=== PATIENT | male | born 1960 | race Caucasian/White ===

== ENCOUNTER 2019-05-26 15:12 | Outpatient (CLI) | payer OTHER, SELFPAY ==
[2019-05-26 15:26] LABS: Basophils Absolute Auto 0.05 K/mm3 (0.00-0.10); Basophils Percent Auto 0.9 % (0.0-1.0); Eosinophils Absolute Auto 0.09 K/mm3 (0.02-0.50); Eosinophils Percent Auto 1.7 % (1.0-6.0); Hematocrit 36.4 % (40.0-54.0); Hemoglobin 12.2 g/dL (14.0-18.0); Immature Granulocyte Absolute 0.04 K/mm3 (0.00-0.00); Immature Granulocyte Percent A 0.8 % (0.0-0.0); Lymphocytes Absolute Auto 0.84 K/mm3 (1.10-4.50); Lymphocytes Percent Auto 15.9 % (18.0-42.0); Mean Corpuscular HGB Conc 33.5 g/dL (32.0-36.0); Mean Corpuscular Hemoglobin 28.4 pg (27.0-31.0); Mean Corpuscular Volume 84.7 fL (78.0-102.0); Mean Platelet Volume 9.8 fl (8.7-11.0); Monocytes Absolute Auto 0.27 K/mm3 (0.10-0.90); Monocytes Percent Auto 5.1 % (2.0-11.0); Neutrophils Percent Auto 75.6 % (50.0-70.0); Platelet Count Result 213 K/mm3 (150-420); Red Cell Distribution Width 14.5 % (11.6-14.4); White Blood Count 5.3 K/mm3 (4.8-10.8)
[2019-05-26 16:08] LABS: Alanine Aminotransferase 17 U/L (16-63); Albumin Level 3.5 g/dL (3.4-5.0); Alkaline Phosphatase 117 U/L (46-116); Anion Gap 14.3 mmol/L (7-16); Aspartate Amino Transferase 12 U/L (15-37); Bilirubin,Total 0.4 mg/dL (0.00-1.00); Blood Urea Nitrogen 17 mg/dL (7-18); Carbon Dioxide 25 mmol/L (21-32); Chloride 101 mmol/L (98-108); Estimated Glomerular Filt Rate > 60; Glucose 308 mg/dL (70-99); Osmolality Calculated 295 mOsm/kg (285-295); Potassium 4.3 mmol/L (3.5-5.1); Sodium 136 mmol/L (136-145); Total Protein 6.2 g/dL (6.4-8.2)
[2019-05-26 16:10] LABS: CRP < 0.2 mg/dL (0.0-0.9)
== END 2019-05-26 15:13 | disposition home or self-care (01) ==
PROVIDERS: PCP Internal Medicine; Visit Provider Internal Medicine
DX: M06.9 Rheumatoid arthritis, unspecified (principal)
CPT/HCPCS: 36415; 80053; 85025; 86140

== ENCOUNTER 2019-08-19 09:55 | Outpatient (CLI) | payer OTHER, SELFPAY ==
[2019-08-19 10:06] LABS: Basophils Absolute Auto 0.04 K/mm3 (0.00-0.10); Basophils Percent Auto 0.8 % (0.0-1.0); Eosinophils Absolute Auto 0.06 K/mm3 (0.02-0.50); Eosinophils Percent Auto 1.1 % (1.0-6.0); Hematocrit 38.1 % (40.0-54.0); Hemoglobin 12.5 g/dL (14.0-18.0); Immature Granulocyte Absolute 0.02 K/mm3 (0.00-0.00); Immature Granulocyte Percent A 0.4 % (0.0-0.0); Lymphocytes Absolute Auto 0.86 K/mm3 (1.10-4.50); Lymphocytes Percent Auto 16.3 % (18.0-42.0); Mean Corpuscular HGB Conc 32.8 g/dL (32.0-36.0); Mean Corpuscular Hemoglobin 27.5 pg (27.0-31.0); Mean Corpuscular Volume 83.9 fL (78.0-102.0); Mean Platelet Volume 9.9 fl (8.7-11.0); Monocytes Absolute Auto 0.32 K/mm3 (0.10-0.90); Monocytes Percent Auto 6.1 % (2.0-11.0); Neutrophils Percent Auto 75.3 % (50.0-70.0); Platelet Count Result 183 K/mm3 (150-420); Red Blood Count 4.54 M/mm3 (4.70-6.10); Red Cell Distribution Width 14.9 % (11.6-14.4); White Blood Count 5.3 K/mm3 (4.8-10.8)
[2019-08-19 10:53] LABS: Alanine Aminotransferase 18 U/L (16-63); Albumin Level 3.5 g/dL (3.4-5.0); Alkaline Phosphatase 109 U/L (46-116); Anion Gap 13.8 mmol/L (7-16); Aspartate Amino Transferase 14 U/L (15-37); Bilirubin,Total 0.4 mg/dL (0.00-1.00); Blood Urea Nitrogen 18 mg/dL (7-18); Calcium 8.4 mg/dL (8.5-10.1); Carbon Dioxide 26 mmol/L (21-32); Chloride 102 mmol/L (98-108); Estimated Glomerular Filt Rate > 60; Glucose 275 mg/dL (70-99); Osmolality Calculated 295 mOsm/kg (285-295); Potassium 4.8 mmol/L (3.5-5.1); Sodium 137 mmol/L (136-145); Total Protein 6.4 g/dL (6.4-8.2)
[2019-08-19 11:42] LABS: CRP < 0.2 mg/dL (0.0-0.9)
[2019-08-22 17:31] LABS: Vitamin D 25 Hydroxy 29 ng/mL (30-100)
== END 2019-08-19 09:56 | disposition home or self-care (01) ==
LOC: CHSLAB 09:57
PROVIDERS: PCP Internal Medicine; Visit Provider Internal Medicine
DX: E55.9 Vitamin D deficiency, unspecified (principal); I10 Essential (primary) hypertension; M06.9 Rheumatoid arthritis, unspecified
CPT/HCPCS: 36415; 80053; 82306; 85025; 86140

== ENCOUNTER 2020-04-15 07:01 | Outpatient (CLI) | payer OTHER, SELFPAY ==
--- NOTE | ~2020-04-15 | NM_ITS ---
EXAMINATION: NM kelley stress w perfusion DATE: 04/15/2020 11:33 INDICATION: Chest pain TECHNIQUE: Rest images were obtained following intravenous administration of 9.1 mCi Tc99m tetrofosmi n (Myoview). The patient was infused intravenously with Lexiscan (Regadenoson). Then, 1.0 mCi Tc99m t etrofosmin (Myoview) was administered intravenously, and stress images were obtained in supine positi on. Additional stress images were obtained in the prone position. Data was reconstructed into short a xis and horizontal and vertical long axis SPECT images. Gated SPECT images were also obtained. COMPARISON: None. FINDINGS: There is no definite reversible or fixed perfusion abnormality to suggest ischemia or infar ction. There is normal left ventricular chamber size, wall motion and ejection fraction. Left ventr icular ejection fraction measures 52%. IMPRESSION: 1. Normal myocardial perfusion at rest and during stress. 2. Left ventricular ejection fraction measuring 52%. Reviewed, dictated and finalized at location A. CING CONSULTANT
--- NOTE | 2020-04-15 07:09 | ECHO_ITS ---
Patient Info Name: Roger Franco Age: 59 years : 1960 Gender: Male Ht: 72 in Wt: 270 lbs BSA: 2.54 m2 HR: 66 bpm BP: 205 / 90 mmHg Technical Quality: Fair Exam Date: 04/15/2020 7:15 AM Exam Location: [facility] Patient Status: Outpatient Admit Date: 04/15/2020 Staff Ordering Physician: Jaime Skinner DO V Belt Builder: Radha Isabel RDCS Attending Provider: Jaime Skinner DO Referring Physician: Brody BAUTISTA; Exam Type: CA echo doppler color flow Study Info Indications R06.00 - Dyspnea, unspecified Complete two-dimensional, color flow and Doppler transthoracic echocardiogram is performed. Summary 1. Complete two-dimensional, color flow and Doppler transthoracic echocardiogram is performed. 2. Left ventricular chamber dimension is normal. 3. Left ventricular systolic function is normal, estimated at 60-65%. 4. There is mildly increased left ventricular wall thickness. 5. The left ventricular diastolic function is grade II diastolic dysfunction. 6. E/e' 17 is elevated. 7. There is severe aortic valve sclerosis. 8. There is no aortic valve stenosis with a peak velocity of 118 cm/s, mean gradient of 3 mmHg, and aortic valve area of 4.3 cm2. However, by visual estimation there is at least moderate aortic stenosis. Consider PANCHO for further evaluation if clinically indicated. 9. The mitral valve has moderately calcified annulus. 10. No pulmonary hypertension, estimated pulmonary arterial systolic pressure is 22 mmHg. Left Ventricle E/e' 17 is elevated. Left ventricular chamber dimension is normal. Left ventricular systolic function is normal, estimated at 60-65%. There is mildly increased left ventricular wall thickness. The left ventricular diastolic function is grade II diastolic dysfunction. Right Ventricle Right ventricular chamber dimension is normal. Right ventricular systolic function is normal. Left Atria Left atrial chamber dimension is normal. Right Atria Right atrial chamber dimension is normal. Aortic Valve There is no aortic valve stenosis with a peak velocity of 118 cm/s, mean gradient of 3 mmHg, and aortic valve area of 4.3 cm2. However, by visual estimation there is at least moderate aortic stenosis. Consider PANCHO for further evaluation if clinically indicated. The aortic valve is trileaflet. There is severe aortic valve sclerosis. There is no aortic valve regurgitation. Pulmonic Valve There is no pulmonic regurgitation. Mitral Valve The mitral valve has moderately calcified annulus. There is no mitral valve stenosis. There is no mitral valve regurgitation. Tricuspid Valve There is no tricuspid valve regurgitation. No pulmonary hypertension, estimated pulmonary arterial systolic pressure is 22 mmHg. Pericardium/Pleural There is no pericardial effusion. Inferior Vena Cava Normal inferior vena cava with >50% collapse upon inspiration consistent with normal right atrial pressure, 5 mmHg. Aorta The aortic root size at the sinus of Valsalva is normal. Left Ventricular Outflow Tract Name Value Normal LVOT 2D LVOT Diameter 2.3 cm LVOT Doppler LVOT Peak Gr
--- NOTE | 2020-04-15 07:09 | EST_ITS ---
Patient Info Name: Roger Franco Age: 59 years : 1960 Gender: Male Ht: 72 in Wt: 270 lbs BSA: 2.54 m2 Exam Date: 04/15/2020 9:15 AM Exam Location: [facility] Stress Patient Status: Outpatient Admit Date: 04/15/2020 Staff Ordering Physician: Jaime Skinner DO Attending Provider: Jaime Skinner DO Exercise Technologist: Radha Isabel RDCS Exercise Physician: Jaime Skinner DO Exam Type: CA stress kelley w NM Study Info Indications R07.9 - Chest pain, unspecified A regadenoson stress test was performed. Summary 1. 1. Negative lexiscan stress test for ischemic ST changes by ECG criteria. 2. 2. Baseline hypertension. 3. 3. Nuclear scan to follow and will be reported separately. Please correlate with it. 4. 4. Patient informed of the above results. Protocol: Lexiscan Stress ECG Details Stage: REST Duration (min): 6 min : 7 sec HR (bpm): 62 SBP (mmHg): 205 DBP (mmHg): 75 Stage: REST Duration (min): 8 min : 35 sec HR (bpm): 59 SBP (mmHg): 205 DBP (mmHg): 75 Stage: REST Duration (min): 8 min : 57 sec HR (bpm): 59 SBP (mmHg): 205 DBP (mmHg): 75 Stage: REST Duration (min): 9 min : 20 sec HR (bpm): 59 SBP (mmHg): 205 DBP (mmHg): 75 Stage: REST Duration (min): 44 min : 12 sec HR (bpm): 63 SBP (mmHg): 205 DBP (mmHg): 75 Stage: STAGE 1 Duration (min): 1 min : 0 sec HR (bpm): 70 SBP (mmHg): 205 DBP (mmHg): 75 Stage: RECOVERY Duration (min): 1 min : 0 sec HR (bpm): 77 SBP (mmHg): 210 DBP (mmHg): 62 Stage: RECOVERY Duration (min): 2 min : 0 sec HR (bpm): 74 SBP (mmHg): 196 DBP (mmHg): 63 Stage: RECOVERY Duration (min): 3 min : 0 sec HR (bpm): 72 SBP (mmHg): 167 DBP (mmHg): 68 Stage: RECOVERY Duration (min): 3 min : 28 sec HR (bpm): 75 SBP (mmHg): 167 DBP (mmHg): 68 Rest HR: 63 bpm Peak HR: 77 bpm Rest Sys BP: 205 mmHg Peak Sys BP: 210 mmHg Max Pred HR: 159 bpm % Max Pred HR: 48 % Target HR: 135 bpm Max RPP: 16,170 bpm*mmHg Termination Reason: Completed protocol Cardiac Symptoms: Shortness of breath Total Time: 1 min : 0 sec Rest Stack BP: 75 mmHg Peak Stack BP: 62 mmHg Total Dose: 0.4 mg Resting ECG Sinus rhythm, RBBB. Stress ECG No ST changes. Arrhythmias None. Report Signatures
== END 2020-04-15 07:02 | disposition home or self-care (01) ==
PROVIDERS: Family Provider Family Medicine Sports Medicine; PCP Internal Medicine; Visit Provider Internal Medicine Cardiovascular Disease
DX: R07.9 Chest pain, unspecified (principal); R06.00 Dyspnea, unspecified
CPT/HCPCS: 78452; 93017; 93306; A9502; J2785

== ENCOUNTER 2020-05-20 08:43 | Outpatient (CLI) | payer OTHER, SELFPAY ==
[2020-05-20 08:56] LABS: Basophils Absolute Auto 0.04 K/mm3 (0.00-0.10); Basophils Percent Auto 0.7 % (0.0-1.0); Eosinophils Absolute Auto 0.08 K/mm3 (0.02-0.50); Eosinophils Percent Auto 1.5 % (1.0-6.0); Hematocrit 34.3 % (40.0-54.0); Hemoglobin 10.8 g/dL (14.0-18.0); Immature Granulocyte Absolute 0.03 K/mm3 (0.00-0.00); Immature Granulocyte Percent A 0.5 % (0.0-0.0); Lymphocytes Absolute Auto 0.99 K/mm3 (1.10-4.50); Lymphocytes Percent Auto 18.1 % (18.0-42.0); Mean Corpuscular HGB Conc 31.5 g/dL (32.0-36.0); Mean Corpuscular Hemoglobin 26.2 pg (27.0-31.0); Mean Corpuscular Volume 83.3 fL (78.0-102.0); Mean Platelet Volume 10.9 fl (8.7-11.0); Monocytes Absolute Auto 0.25 K/mm3 (0.10-0.90); Monocytes Percent Auto 4.6 % (2.0-11.0); Neutrophils Absolute Auto 4.1 K/mm3 (1.7-7.2); Neutrophils Percent Auto 74.6 % (50.0-70.0); Platelet Count Result 199 K/mm3 (150-420); Red Blood Count 4.12 M/mm3 (4.70-6.10); White Blood Count 5.5 K/mm3 (4.8-10.8)
[2020-05-20 09:27] LABS: Alanine Aminotransferase 24 U/L (16-63); Albumin Level 3.4 g/dL (3.4-5.0); Alkaline Phosphatase 98 U/L (46-116); Anion Gap 10 mmol/L (8-16); Aspartate Amino Transferase 21 U/L (15-37); Bilirubin,Total 0.5 mg/dL (0.00-1.00); Blood Urea Nitrogen 17 mg/dL (7-18); CRP < 0.5 mg/dL (0.0-0.9); Carbon Dioxide 29 mmol/L (21-32); Chloride 101 mmol/L (98-108); Estimated Glomerular Filt Rate > 60; Glucose 219 mg/dL (70-99); Osmolality Calculated 298 mOsm/kg (285-295); Phosphorus 3.7 mg/dL (2.6-4.7); Potassium 4.4 mmol/L (3.5-5.1); Sodium 140 mmol/L (136-145); Total Protein 6.3 g/dL (6.4-8.2)
[2020-05-23 00:07] LABS: Vitamin D 1,25 (OH)2 Total 47 pg/mL (18-72); Vitamin D2 1,25 (OH)2 28 pg/mL; Vitamin D3 1,25 (OH)2 19 pg/mL
[2020-05-23 11:41] LABS: Parathyroid Intact 73 pg/mL (14-64)
[2020-05-24 12:26] LABS: Vitamin D 25 Hydroxy 29 ng/mL (30-100)
== END 2020-05-20 08:44 | disposition home or self-care (01) ==
LOC: CHSLAB 08:45
PROVIDERS: PCP Internal Medicine; Visit Provider Internal Medicine
DX: M06.9 Rheumatoid arthritis, unspecified (principal); E55.9 Vitamin D deficiency, unspecified
CPT/HCPCS: 36415; 80053; 82306; 82652; 83970; 84100; 85025; 86140

== ENCOUNTER 2020-05-22 10:56 | Outpatient (CLI) | payer OTHER, SELFPAY ==
[2020-05-22 11:06] LABS: Immature Reticulocyte Fraction 32.2 % (2.0-16.52); Reticulocyte Hemoglobin Conten 33.6 pg (28.0-35.0); Reticulocyte Percent 1.47 % (0.50-1.50); Reticulocytes Absolute 0.06 M/mm3 (0.02-0.1)
[2020-05-22 12:02] LABS: Ferritin 17 ng/mL (26-388); Iron 24 ug/dL (65-175); Percent Iron Saturation 6 % (12-57)
[2020-05-26 07:59] LABS: Red Blood Cell Folate >1000 ng/mL RBC (>280)
[2020-05-27 08:35] LABS: Methylmalonic Acid 172 nmol/L (87-318)
== END 2020-05-22 10:57 | disposition home or self-care (01) ==
LOC: CHSLAB 10:57
PROVIDERS: PCP Internal Medicine; Visit Provider Internal Medicine
DX: D64.9 Anemia, unspecified (principal)
CPT/HCPCS: 36415; 82728; 82747; 83540; 83550; 83921; 85046

== ENCOUNTER 2020-09-26 15:04 | Emergency (ER) | payer OTHER, SELFPAY ==
--- NOTE | ~2020-09-26 | XR_ITS ---
EXAMINATION: XR chest 2V EXAM DATE: 09/26/2020 16:12 INDICATION: Syncope. TECHNIQUE: Frontal and lateral projections of the chest obtained and reviewed. Comparison is made to prior examination from 03/03/2019. FINDINGS: The lungs are clear. There are no pleural effusions. The cardiomediastinal silhouette is within normal limits. There is no pneumothorax suspected. The bones and soft tissues are unremarkab le. IMPRESSION: No acute cardiopulmonary findings. Reviewed, dictated and finalized at location B.
--- NOTE | ~2020-09-26 | CT_ITS ---
EXAMINATION: CT brain wo con EXAM DATE: 09/26/2020 16:12 INDICATION: Syncope, confusion, severe bitemporal headache. Confusion. TECHNIQUE: Spiral CT of the head was performed without contrast. Axial, coronal and sagittal images were reviewed. The dose-length product (DLP) for this examination was 681.00 mGy-cm. The exposure w as tailored according to patient size, and iterative reconstruction (ASIR) was used as additional dos e reduction technique. There is no prior study for comparison. 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 There is no acute intraparenchymal hemorrhage. No e vidence of intraparenchymal brain mass lesion. No evidence of acute infarction. Please note that in itial head CT has limited sensitivity for small or acute infarctions. There is mild periventricular a nd subcortical hypodensity, nonspecific but probably related to small vessel ischemic disease. Ther e is mild to moderate prominence of the sulci and ventricles related to cerebral atrophy. There is intracranial carotid arteriosclerosis. There are no extra-axial collections. There is no mass effec t or midline shift. The orbits are unremarkable. Soft tissue is unremarkable. The visualized sinus es and mastoid air cells are well aerated. IMPRESSION: 1. No acute intracranial findings. 2. Chronic age related findings. 3. Small right frontal lobe infarction. Reviewed, dictated and finalized at location B.
[2020-09-26 15:32] VITALS: BP 191/88; PULSE 70; RESP 20; TEMP 37.3; O2SAT 99
--- NOTE | 2020-09-26 15:47 | ECG_ITS ---
Measurements Intervals [place] Rate: 63 P: 48 FL: 144 QRS: 246 QRSD: 152 T: 46 QT: 425 QTc: 437 Interpretive Statements SINUS RHYTHM RIGHT AXIS DEVIATION RIGHT BUNDLE BRANCH BLOCK ABNORMAL ECG Electronically Signed On 09-26-2020 17:04:16 CDT by Jaime Skinner D.O.
[2020-09-26 15:57] LABS: Appearance Urine Clear (Clear); Bilirubin Urine Negative (Negative); Color Urine Light Yellow (Yellow); Glucose Urine UA 2+ (Negative); Ketones Urine Negative (Negative); Leukocyte Esterase Ur Negative LEU/UL (Negative); Nitrate Urine Negative (Negative); Protein Urine 2+ (Negative); Urobilinogen Urine 0.2 mg/dL (0.2-1.0)
[2020-09-26 16:02] LABS: Add Urine Microscopic? YES; Bacteria Urine 1+ /hpf; Blood Urine Trace-Intact (Negative); RBC Urine 0-2 /hpf (0-2); Squamous Epithelial Cell Urine Rare /hpf (Few); WBC Urine 0-3 /hpf (0-3)
[2020-09-26 16:21] LABS: Basophils Absolute Auto 0.04 K/mm3 (0.00-0.10); Basophils Percent Auto 0.6 % (0.0-1.0); Eosinophils Absolute Auto 0.04 K/mm3 (0.02-0.50); Eosinophils Percent Auto 0.6 % (1.0-6.0); Hematocrit 34.1 % (40.0-54.0); Hemoglobin 10.6 g/dL (14.0-18.0); Immature Granulocyte Absolute 0.06 K/mm3 (0.00-0.00); Immature Granulocyte Percent A 0.9 % (0.0-0.0); Lymphocytes Absolute Auto 0.87 K/mm3 (1.10-4.50); Lymphocytes Percent Auto 13.1 % (18.0-42.0); Mean Corpuscular HGB Conc 31.1 g/dL (32.0-36.0); Mean Corpuscular Hemoglobin 25.2 pg (27.0-31.0); Mean Platelet Volume 10.2 fl (8.7-11.0); Monocytes Absolute Auto 0.39 K/mm3 (0.10-0.90); Monocytes Percent Auto 5.9 % (2.0-11.0); Neutrophils Absolute Auto 5.2 K/mm3 (1.7-7.2); Neutrophils Percent Auto 78.9 % (50.0-70.0); Platelet Count Result 211 K/mm3 (150-420); Red Blood Count 4.21 M/mm3 (4.70-6.10); Red Cell Distribution Width 17.3 % (11.6-14.4); White Blood Count 6.6 K/mm3 (4.8-10.8)
--- NOTE | 2020-09-26 16:35 | PC.NURSE ---
Addendum entered by Renee Aguila RN 10/08/20 16:23: WRONG PT DISCARD NOTE Original Note: [id number] DR LAMAS SPOKE WITH CARDINAL LOZANO PT ACCEPTED BY DR SOLIS PEDIATRIC TRANSFER TEAM ON THERE WAY TO LOAN REVIEW MANAGER CHILD
[2020-09-26 16:39] LABS: Alanine Aminotransferase 31 U/L (16-63); Albumin Level 3.2 g/dL (3.4-5.0); Alkaline Phosphatase 97 U/L (46-116); Anion Gap 10 mmol/L (8-16); Aspartate Amino Transferase 13 U/L (15-37); Bilirubin,Total 0.4 mg/dL (0.00-1.00); Blood Urea Nitrogen 15 mg/dL (7-18); Calcium 8.2 mg/dL (8.5-10.1); Carbon Dioxide 27 mmol/L (21-32); Chloride 105 mmol/L (98-108); Estimated CRCL calculation 78 ml/min; Estimated Glomerular Filt Rate > 60; Glucose 192 mg/dL (70-99); Lactic Acid Reflex 1.4 mmol/L (0.4-2.0); Osmolality Calculated 299 mOsm/kg (285-295); Potassium 4.2 mmol/L (3.5-5.1); Sodium 142 mmol/L (136-145); Total Protein 6.3 g/dL (6.4-8.2); Troponin I 22.7 ng/L (0.00-60.4)
[2020-09-26 17:00] VITALS: BP 187/84; PULSE 66; RESP 20; O2SAT 98
--- NOTE | 2020-09-26 17:59 | ED.SYNCOPE ---
HPI - Syncope General Chief Complaint: Syncope Stated Complaint: headaches,confusion,trouble seeing Time Seen by Provider: 09/26/20 15:35 Source: patient Mode of arrival: ambulatory Limitations: no limitations History of Present Illness HPI narrative: Patient comes in stating he was at the [employer] store two days ago and was ready to drive home and got confused and seemingly did not know how to get home. He evidently got confused and was not sure where he was wondering down roads driving until he eventually got home. Confusion evidently cleared after getting home. He evidently was ok yesterday then. Today he says he was found on the floor in his bedroom by the bed at 5am this morning. He lay on the floor for one hour cussing at the girl friend and the son, and then evidently got up and went back to bed. When he got up he had no knowledge of what actually went on. After he was told again he decided to come in. Confusion has been severe, transient, associated with memory loss, and what appears to be a TIA. The second episode, may represent a neurologic event, such as a TIA, or a actual syncopal episode. Nothing helped at home, no modifying factors. No other associated signs or symptoms such as tachycardia, or feeling fait can be found. Onset (ago): hour(s) Prodromal symptoms: headache Context: at rest Injuries sustained associated with event: none Current symptoms: headache (mild) Related Data Home Medications Medication Instructions Recorded Confirmed albuterol sulfate 90 mcg/actuation 1 inh INHALATION Q4H 03/06/20 09/26/20 aerosol inhaler cetirizine 10 mg tablet 10 mg PO DAILY 03/06/20 09/26/20 methotrexate sodium 2.5 mg tablet 2.5 mg PO WEEKLY 03/06/20 09/26/20 prednisone 5 mg tablet 5 mg PO DAILY 03/06/20 09/26/20 zolpidem 10 mg tablet 10 mg PO ONCE 03/06/20 09/26/20 insulin glargine 100 unit/mL (3 40 unit SUBCUT QPM 03/20/20 09/26/20 mL) subcutaneous pen insulin lispro 200 unit/mL (3 mL) See Rx Instructions .ROUTE .COMPLEX 03/20/20 09/26/20 subcutaneous pen losartan 50 mg tablet 100 mg PO DAILY tablet 03/20/20 09/26/20 pantoprazole 40 mg tablet,delayed 40 mg PO QAM 04/23/20 09/26/20 release carvedilol [Coreg] 3.125 mg PO BID 09/26/20 09/26/20 omeprazole 40 mg PO BID 09/26/20 09/26/20 sucralfate [Carafate] 1 g PO Q6H 09/26/20 09/26/20 Allergies Allergy/AdvReac Type Severity Reaction Status Date / Time No Known Allergies Allergy Mild Verified 04/23/20 11:46 Review of Systems Constitutional: Constitutional: Reports no additional constitutional complaints Eyes: Eyes: Reports no additional eye complaints ENT: Reports system reviewed and no additional complaints, except as documented Cardiovascular: Cardiovascular: Reports no additional cardiovascular complaints Respiratory: Respiratory: Reports no additional respiratory complaints Gastrointestinal: Gastrointestinal: Reports no additional gastrointestinal complaints Genitourinary: Genitourinary: Reports no additional male genitourinary complaints Musculoskeletal: Musculoskeletal: Reports no additional musculoskeletal complaints Integumentary/Breasts: Skin/Breast: Reports system reviewed and no additional complaints, except as docu Neurologic: Reports system reviewed and no additional complaints, except as documented Psychiatric: Psychiatric: Reports no additional psychiatric complaints Endocrine: Endocrine: Reports no additional endocrine complaints Hematologic/Lymphatic: Hematologic/Lymphatic: Reports no additional hematologic/lymphatic complaints Allergic/Immunologic: Allergic/Immunologic: Reports no additional allergic/immunologic complaints [facility] Past Medical History Medical History Heart murmur Right shoulder pain Stroke Surgical History Surgical History H/O left wrist surgery H/O shoulder surgery Hx of knee surgery Previous b
[2020-09-26] MEDS: ASPIRIN 81 MG CHEWABLE TABLET 324 MG PO (18:05)
[2020-09-26] MEDS: KETOROLAC (*BKC) 60 MG/2 ML VIAL IM (18:05)
[2020-09-26 19:13] VITALS: BP 202/89; PULSE 65; RESP 20; O2SAT 100
[2020-09-26 21:00] VITALS: BP 179/72; PULSE 66; RESP 20; O2SAT 100
[2020-09-26 21:53] VITALS: BP 179/72; PULSE 66; RESP 20; TEMP 37; O2SAT 100
[2020-09-26 23:52] LABS: Glucose Point of Care 233 mg/dl (65-105)
== END 2020-09-26 21:56 | disposition short-term general hospital (02) ==
LOC: CHSED 15:06
PROVIDERS: Emergency Provider Emergency Medicine; PCP Internal Medicine
DX: G45.9 Transient cerebral ischemic attack, unspecified (principal); R55 Syncope and collapse
CPT/HCPCS: 36415; 70450; 71046; 80053; 81001; 82948; 83605; 84484; 85025; 93005; 96372; 99285; A9270; J1885

== ENCOUNTER 2020-09-27 02:33 | Observation (INO) | payer OTHER, SELFPAY ==
--- NOTE | 2020-09-26 22:52 | ADMGEN ---
This patient, Roger Franco, was admitted to Medical Room 250-01. Patient/family oriented to hospital policies and general routines including ID bracelet, bed and alarms, visiting hours, pain management, procedures, bathroom and other care routines, personal items, smoking policy, room service/diet, and visiting hours. Information on how to activate the Rapid Response Team has been discussed. Patient/Family are encouraged to report perceived risks to care and to ask questions if they do not understand what they are told or what they should do.
[2020-09-26 22:57] VITALS: BP 152/64; PULSE 69; RESP 16; TEMP 36.5; O2SAT 99; BMI 37.0
--- NOTE | 2020-09-27 | ECHO_ITS ---
Patient Info Name: Roger Franco Age: 60 years : 1960 Gender: Male Ht: 72 in Wt: 272 lbs BSA: 2.55 m2 HR: 73 bpm BP: 159 / 59 mmHg Heart Rhythm: Sinus Rhythm Technical Quality: Fair Exam Date: 09/27/2020 1:59 PM Exam Location: [facility] Pulmonary Patient Status: Outpatient Admit Date: 09/27/2020 Staff Ordering Physician: Cat Beaver MD Residential Direct Support Professional: Radha Isabel RDCS Attending Provider: Phyllis Jain PA-C Referring Physician: Sd ROBERTSON; Exam Type: CA echo dop color flow w con Study Info Indications R01.1 - Cardiac murmur, unspecified Complete two-dimensional, color flow and Doppler transthoracic echocardiogram is performed with contrast to opacify the left ventricle and to improve the deliniation of the left ventricle endocardial borders. Contrast/Agitated Saline Contrast/Ag. Saline: Definity Amount: 1.00 ml Summary 1. There is mild concentric increased left ventricular wall thickness. 2. Left ventricular systolic function is normal, estimated at 60-65%. 3. The left ventricular diastolic function is grade II diastolic dysfunction. 4. Left atrial chamber dimension is mildly enlarged. 5. There is severe aortic valve sclerosis. 6. There is mild aortic valve stenosis with a peak velocity of 290.75 cm/s, mean gradient of 19 mmHg, and aortic valve area of 1.36 cm2. 7. The mitral valve annulus is severely calcified. 8. Compared to previous exam aortic valve Doppler appears to be more accurate. 9. No other significant change compared to examination from April of this year. Left Ventricle Left ventricular chamber dimension is normal. Left ventricular systolic function is normal, estimated at 60-65%. There is mild concentric increased left ventricular wall thickness. The left ventricular diastolic function is grade II diastolic dysfunction. Right Ventricle Right ventricular chamber dimension is normal. Left Atria Left atrial chamber dimension is mildly enlarged. Right Atria Right atrial chamber dimension is normal. Aortic Valve The aortic valve is trileaflet. There is severe aortic valve sclerosis. There is mild aortic valve stenosis with a peak velocity of 290.75 cm/s, mean gradient of 19 mmHg, and aortic valve area of 1.36 cm2. Pulmonic Valve The pulmonic valve is not well visualized. Mitral Valve The mitral valve has normal leaflets. The mitral valve annulus is severely calcified. Tricuspid Valve The tricuspid valve leaflets are normal. Pericardium/Pleural The pericardium appears normal. Aorta The aortic root size at the sinus of Valsalva is normal. Left Ventricular Outflow Tract Name Value Normal LVOT 2D LVOT Diameter 2.06 cm LVOT Doppler LVOT Peak Gradient 5 mmHg LVOT Mean Gradient 2 mmHg LVOT VTI 27.34 cm LVOT VTI/AV VTI Ratio 0.41 LVOT Stroke Volume 90.84 ml LVOT CO 5.45 l/min LVOT CI 2.14 L/m
--- NOTE | ~2020-09-27 | CT_ITS ---
EXAMINATION: CTA brain EXAM DATE: 09/27/2020 11:42 INDICATION: Daily headaches. TECHNIQUE: Noncontrast head CT. Spiral CT angiogram cerebral arteries performed with intravenous in jection of 100 mL Omnipaque 350. Axial, coronal and sagittal images reviewed. Additional reformatted images created on dedicated 3-D workstation. The dose-length product (DLP) for this examination was 695.19 mGy-cm. The exposure was tailored according to patient size, and iterative reconstruction ( ASIR) was used as additional dose reduction technique. There is no prior study for comparison. FINDINGS: There is bilateral carotid siphon arterial sclerosis with regions of mild to moderate sten osis on the left. There is no distal carotid or vertebral basilar arterial dissection or fibromuscul ar dysplasia. There are no cerebral artery aneurysms. There is symmetric cerebral artery arborization . The sagittal, transverse and sigmoid sinuses enhance normally, no venous sinus thrombosis. Internal cerebral veins also enhance normally. Small old right frontal lobe infarction. Punctate old right caudate head lacunar infarction. Mild sen escent changes. 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 There are no areas of abnormal enha ncement on the post contrast images. IMPRESSION: 1. No acute intracranial findings or cerebral artery aneurysm. 2. Mild to moderate carotid siphon arterial sclerosis and regions of left intracranial ICA stenosis. 3. Small old right caudate, frontal lobe infarctions. 4. Senescent changes. Reviewed, dictated and finalized at location B. IMPRESSION: 1. No acute intracranial findings or cerebral artery aneurysm. 2. Mild to moderate carotid siphon arterial sclerosis and regions of left intr acranial ICA stenosis. 3. Small old right caudate, frontal lobe infarctions. 4. Senescent changes.
--- NOTE | ~2020-09-27 | US_ITS ---
EXAMINATION: US carotid duplex BI DATE: 09/27/2020 12:00 INDICATION: Headaches TECHNIQUE: Grayscale, color Doppler, and pulsed Doppler images of the cervical carotid arteries were obtained. The degree of vessel stenosis is placed in one of the following categories: normal, <50%, 5 0-69%, >=70% but less than near-occlusion, near-occlusion, or total occlusion. Note that percent sten osis relative to normal distal artery lumen diameter is indirectly measured from velocity measurement s as described by Erick, et al. Radiology 2003; [id number]:[id number]. Notes: Normal: Peak systolic velocity <125 centimeters/sec and no plaque <50%. Peak systolic velocity <125 ( EDV <40; ICA/CCA PSV ratio <2.0; used these factors only a tandem lesions or low cardiac output or co ntralateral disease) 50-69 %: PSV 125-230 (EDV 40-100; ratio 2-4) >= 70% but less than near occlusion: PSV greater than 230 (EDV > 100; ratio> 4.0) Near Occlusion: PSV that is variable; markedly narrowed lumen Occlusion: Absent flow on color/spectral Doppler and no lumen on alvarez scale. COMPARISON: None. FINDINGS: RIGHT: The right common carotid artery (CCA) peak systolic velocity (PSV) is 109 cm/s. The right internal ca rotid artery (ICA) PSV is 65 cm/s. The right ICA end-diastolic velocity (EDV) is 22 cm/s. The right I CA/CCA PSV ratio is 0.6. The external carotid artery (ECA) PSV is 88 cm/s. There is antegrade flow in the right vertebral artery. LEFT: The left CCA PSV is 108 cm/s. The left ICA PSV is 78 cm/s. The left ICA EDV is 19 cm/s. The left ICA/ CCA PSV ratio is 0.7. The ECA PSV is 92 cm/s. There is antegrade flow in the left vertebral artery. IMPRESSION: 1. Less than 50% stenosis in the right internal carotid artery by sonographic criteria. 2. Less than 50% stenosis in the left internal carotid artery by sonographic criteria. Reviewed, dictated and finalized at location A. IMPRESSION: 1. Less than 50% stenosis in the right internal carotid artery by sonographic nikki perdue. 2. Less than 50% stenosis in the left internal carotid artery by sonographic annel morris.
--- NOTE | 2020-09-27 02:41 | PM.IMHP ---
H&P: HPI History of Present Illness Date/Time: 09/27/20 02:41 Chief Complaint: transient alteration of orientation Narrative: This is a 60-year-old male with past medical history significant for type 2 diabetes mellitus, congestive heart failure, GERD. THE PATIENT CAME A TRANSFER [facility] FOR FURTHER EVALUATION ON WITH NEUROLOGY. PATIENT PRESENTED TO EMERGENCY ROOM AT [facility] AFTER HE HAD AN EPISODE OF TRANSIENT ALTERATION OF ORIENTATION PATIENT WENT TO A STORE THAT HE IS USED TO GO OF AT LEAST 4 TO 5 TIMES A WEEK FOR SEVERAL YEARS AND IS TO MILES FROM HIS HOUSE. WHEN PATIENT LEFT THE STORE HE WOULD GET IN HIS CAR AND WAS DRIVING AROUND BECAUSE COULD NOT FIND HIS WAY HOME HAD SOME VISION ON ULCERATION WELL COULD NOT SEE THE ROAD PATIENT EVEN WENT ACROSS TO OTHER TOWN AND EVENTUALLY FOUND HIS WAY BACK HOME. STAFF AT THE STORE NOTICE THAT HE WAS NOT HIS USUAL HE WAS ASKED IF HE WAS DRUNK WHEN HE CAME BACK THE NEXT DAY. PATIENT ALSO HAD ANOTHER EPISODE WHERE HE WAS FOUND DOWN ON THE FLOOR IN HIS BEDROOM AND WHEN HE WAS PUT BACK IN BED BY HIS GIRLFRIEND AND SON HE WAS CURSING AND SWEARING AT THEM AND HE HAS NO RECOLLECTION OF THESE EVENTS. S STATES THAT HAS BEEN HAVING DAILY HEADACHES UPON WAKING UP IN THE MORNING WHICH ARE POUNDING HEADACHES BUT HAS NOT NOTICED ANY CHANGES IN HIS VISION NO SPOTS OR NO LOSS OF VISION. HE DENIES THE USE OF ANY RECREATIONAL DRUGS AND DRINKS OCCASIONALLY HE HAS NOT HAD ANY FEVERS RIGORS CHILLS NAUSEA VOMITING ABDOMINAL PAIN DIARRHEA FOCALIZED WEAKNESS OR SENSORY DEFICIT NO CHEST PAIN NO PND NO ORTHOPNEA NO LIGHTHEADEDNESS NO DIZZINESS. PRELIMINARY WORKUP HAS BEEN ESSENTIALLY NONREVEALING PATIENT HAS BEEN TRANSFERRED TO OUR HOSPITAL FOR FURTHER EVALUATION. Review of Systems Review of Systems: TRANSIENT ALTERATION OF ORIENTATION Constitutional: Constitutional: Denies chills, Denies fatigue, Denies fever(s), Denies lethargy, Denies malaise and Denies weakness Eyes: Eyes: Denies change in vision ENT: Reports system reviewed and no additional complaints, except as documented Cardiovascular: Cardiovascular: Denies chest pain, Denies chest pain at rest, Denies edema, Denies irregular heart rhythm, Denies claudication, Denies lightheadedness, Denies radiating jaw, neck or arm pain, Denies palpitations, Denies dyspnea, Denies dyspnea on exertion and Denies orthopnea Respiratory: Respiratory: Denies cough and Denies dyspnea Gastrointestinal: Gastrointestinal: Reports dyspepsia, Reports heartburn, Denies diarrhea, Denies nausea and Denies vomiting Genitourinary: Genitourinary: Reports no additional male genitourinary complaints Musculoskeletal: Musculoskeletal: Reports no additional musculoskeletal complaints Integumentary/Breasts: Skin/Breast: Reports system reviewed and no additional complaints, except as docu Neurologic: Reports Neuro-related abnormal movements, Reports abnormal gait, Reports confusion, Denies vertigo, Denies dizziness, Reports syncope, Reports headache(s), Denies lack of coordination, Denies focal weakness, Denies seizure-like activity, Denies Sensory deficit (Neuro), Denies tingling, Denies tremor(s), Denies disequilibrium and Denies weakness Psychiatric: Psychiatric: Reports confusion Endocrine: Endocrine: Reports no additional endocrine complaints Hematologic/Lymphatic: Hematologic/Lymphatic: Reports no additional hematologic/lymphatic complaints Allergic/Immunologic: Allergic/Immunologic: Reports no additional allergic/immunologic complaints PMF[facility] Past Medical History Medical History Heart murmur Right shoulder pain Stroke Surgical History Surgical History H/O left wrist surgery H/O shoulder surgery Hx of knee surgery Previous back surgery Family History Family History Mother Diabetes mellitus, Onset Age:
[2020-09-27 04:00] VITALS: PULSE 60
[2020-09-27] MEDS: MAGNESIUM HYDROXIDE SUSP 30 ML UDC PO (04:56)
[2020-09-27 05:41] VITALS: BP 159/59; PULSE 63; RESP 18; TEMP 36.7; O2SAT 100
[2020-09-27 05:54] LABS: Basophils Absolute Auto 0.1 K/mm3 (0.0-0.1); Basophils Percent Auto 1.3 % (0.2-1.2); Eosinophils Absolute Auto 0.1 K/mm3 (0-0.3); Eosinophils Percent Auto 1.7 % (0-4.4); Hematocrit 29.4 % (42.0-52.0); Hemoglobin 9.2 g/dL (14.0-18.0); Immature Granulocyte Absolute 0.04 K/mm3 (0.00-0.031); Immature Granulocyte Percent A 0.8 % (0-0.5); Lymphocytes Absolute Auto 1.24 K/mm3 (0.9-3.2); Lymphocytes Percent Auto 25.8 % (18.3-44.2); Mean Corpuscular HGB Conc 31.3 g/dl (32-36); Mean Corpuscular Hemoglobin 25.1 pg (26-34); Mean Corpuscular Volume 80.3 fl (80-100); Monocytes Absolute Auto 0.3 K/mm3 (0.1-0.6); Monocytes Percent Auto 7.1 % (2.6-8.5); Neutrophils Percent Auto 63.3 % (45.5-73.1); Platelet Count Result 174 k/mm3 (150-375); Red Blood Count 3.66 M/mm3 (4.6-6.20); Red Cell Distribution Width 17.4 % (11.5-14.5); White Blood Count 4.8 K/mm3 (4.5-10.0)
[2020-09-27] MEDS: SUCRALFATE 1 GM TABLET PO ×3 (06:31→15:59)
[2020-09-27 07:50] LABS: Glucose Point of Care 160 mg/dl (65-105)
[2020-09-27 08:00] VITALS: PULSE 69
[2020-09-27 08:11] VITALS: PULSE 74
[2020-09-27] MEDS: METHOTREXATE 2.5 MG TAB (*CHEMO) PO (08:11)
[2020-09-27] MEDS: LOSARTAN POTASSIUM 50 MG TABLET 100 MG PO (08:11)
[2020-09-27] MEDS: PANTOPRAZOLE 40 MG TABLET PO ×2 (08:11→15:59)
[2020-09-27] MEDS: LORATADINE 10 MG TABLET PO (08:11)
[2020-09-27] MEDS: carvediloL 3.125 MG TABLET PO ×2 (08:11→16:00)
[2020-09-27] MEDS: predniSONE 5 MG TABLET PO (08:11)
[2020-09-27 09:17] LABS: Alanine Aminotransferase 17 U/L (4-50); Albumin Level 3.5 g/dL (3.5-5.1); Alkaline Phosphatase 92 U/L (38-126); Anion Gap 7 mmol/L (8-16); Aspartate Amino Transferase 20 U/L (17-59); Bilirubin,Total 0.6 mg/dL (0.2-1.3); Blood Urea Nitrogen 21 mg/dL (9-20); Calcium 8.9 mg/dL (8.4-10.2); Carbon Dioxide 26 mmol/L (22-30); Chloride 102 mmol/L (98-107); Estimated CRCL calculation 84 ml/min; Estimated Glomerular Filt Rate > 60; Glucose 274 mg/dL (65-110); Magnesium 1.9 mg/dL (1.6-2.3); Potassium 4.9 mmol/L (3.4-5.0); Sodium 135 mmol/L (137-145)
[2020-09-27 09:19] LABS: Iron 40 ug/dL (49-181)
[2020-09-27 09:29] LABS: Percent Iron Saturation 10 % (20-50)
[2020-09-27 10:20] LABS: Folic Acid 15.9 ng/mL (2.76->20)
--- NOTE | 2020-09-27 11:26 | ECG_ITS ---
Measurements Intervals [place] Rate: 62 P: 37 AL: 154 QRS: 14 QRSD: 145 T: 59 QT: 425 QTc: 434 Interpretive Statements SINUS RHYTHM RIGHT BUNDLE BRANCH BLOCK PEAKED T WAVES- CONSIDER HYPERKALEMIA OR ISCHEMIA ABNORMAL ECG Electronically Signed On 09-27-2020 15:33:51 CDT by Jaime Skinner D.O.
[2020-09-27 12:00] LABS: Vitamin D 25 Hydroxy 25.9 ng/mL
[2020-09-27 12:57] LABS: Glucose Point of Care 323 mg/dl (65-105)
[2020-09-27 13:16] LABS: Glucose Point of Care 399 mg/dl (65-105)
[2020-09-27] MEDS: INSULIN ASPART (*BKC) 100 UNITS/ML SUB-Q (13:52)
[2020-09-27 14:00] VITALS: BP 164/86; PULSE 67; RESP 18; TEMP 36.5; O2SAT 100
[2020-09-27] MEDS: PERFLUTREN LIPID MICROSPHERES 1.5 ML VIAL DILUTED TO 10 ML TOTAL VOLUME IV PUSH (14:22)
[2020-09-27 15:01] LABS: Glucose Point of Care 341 mg/dl (65-105)
[2020-09-27 16:00] VITALS: PULSE 64
[2020-09-27] MEDS: INSULIN ASPART (*BKC) 100 UNITS/ML 18 UNITS SUB-Q (16:32)
--- NOTE | 2020-09-27 16:36 | PM.DS ---
DS: Admitting Diagnosis Admitting Diagnosis Transient alteration of awareness DS: Discharge Diagnosis Discharge Diagnosis (1) Syncope: Qualifiers: Syncope type: unspecified Qualified Code(s): R55 - Syncope and collapse Code(s): R55 - Syncope and collapse Status: Inactive Assessment and Plan: Date of Admission 09/27/20 Date of Discharge 09/27/20 Mr. Bowens is a 60yo M with history of hypertension who presented to the ED for evaluation of daily headaches x 6 months and two episodes of disorientation over the last 2 days prior to arrival. He described waking up with bilateral frontal headaches moderate to severe intensity almost daily over the last 6 months. Headaches are sometimes relieved by Tylenol. He had two episodes of disorientation as described in history and physical of which he has poor recollection. CT brain demonstrates areas of old stroke without evidence of new infarct. MRI brain unable to be obtained at our facility as he mentioned peripheral stent placement to left leg and he does not remember where he had this performed thus we are unable to obtain the records required by our MRI department. Unable to be evaluated by neurology at our facility due to no neuro coverage at this time. Differentials discussed with patient. Offered to transfer patient to tertiary care where he could receive MRI and neurology evaluation. Since he is feeling well at this time, he is not interested in being transferred and has opted for outpatient follow up which is reasonable given his hemodynamic stability. He is stable for discharge 09/27/20 with order for MRI and instructions to follow up with neuro outpatient as well as his PCP. (2) Altered mental status: Code(s): R41.82 - Altered mental status, unspecified Status: Acute (3) New daily persistent headache (ndph): Code(s): G44.52 - New daily persistent headache (NDPH) Status: Acute (4) Aortic stenosis, moderate: Code(s): I35.0 - Nonrheumatic aortic (valve) stenosis Status: Acute (5) Tobacco abuse: Code(s): Z72.0 - Tobacco use Status: Acute (6) Obesity: Code(s): E66.9 - Obesity, unspecified Status: Acute (7) Hypertension: Code(s): I10 - Essential (primary) hypertension Status: Acute Assessment and Plan: Stable maintained on his home losartan. DS: Summary Hospital Course Hospital Course: See above Time Spent with Patient Time attestation: Total time spent providing and/or coordinating discharge services: 35 minutes Exam Narrative: General: Male resting comfortably supine in bed in no acute distress. HEENT: Normocephalic, EOMI, oral mucosa moist. Cardiovascular: Rate and rhythm are regular. Respiratory: Lungs clear to auscultation bilaterally. Respirations even and non-labored. Tolerating room air. Abdomen: Soft, non-tender, non-distended, bowel sounds present. Extremities: Peripheral pulses intact. No edema or pain to palpation. Neuro: Awake and alert; answering all questions appropriately. Cranial nerves II-XIIi intact as tested. Upper and lower extremity strength and momd teacher strength are equal and appropriate bilaterally. No focal neurological deficits. Speech is clear. DS: Data Data Completed and Pending Labs on day of discharge: Last Vital Signs Temp 97.7 F 09/27/20 14:00 Pulse 64 09/27/20 16:00 Resp 18 09/27/20 14:00 BP 164/86 H 09/27/20 14:00 Pulse Ox 100 09/27/20 14:00 ITS Impressions Carotid Doppler Study 09/27/20 12:01 IMPRESSION: 1. Less than 50% stenosis in the right internal carotid artery by sonographic criteria. 2. Less than 50% stenosis in the left internal carotid artery by sonographic criteria. CT Brain Angiography 09/27/20 12:24 IMPRESSION: 1. No acute intracranial findings or cerebral artery aneurysm. 2. Mild to moderate carotid siphon arterial sclerosis and regions
[2020-09-27 16:43] LABS: Glucose Point of Care 198 mg/dl (65-105)
[2020-10-01 20:15] LABS: Ceruloplasmin 31 mg/dL (18-36)
== END 2020-09-27 17:47 | disposition home or self-care (01) ==
PROVIDERS: Physician Assistant; Admitting Provider Internal Medicine; PCP Internal Medicine; Visit Provider Hospitalist
DX: R55 Syncope and collapse (principal); R41.82 Altered mental status, unspecified; G44.52 New daily persistent headache (NDPH); I35.0 Nonrheumatic aortic (valve) stenosis; K21.9 Gastro-esophageal reflux disease without esophagitis; E11.9 Type 2 diabetes mellitus without complications; E66.9 Obesity, unspecified; R01.1 Cardiac murmur, unspecified; F17.210 Nicotine dependence, cigarettes, uncomplicated; Z86.73 Personal history of transient ischemic attack (TIA), and cerebral infarction without residual deficits; Z79.899 Other long term (current) drug therapy; Z68.37 Body mass index [BMI] 37.0-37.9, adult; Z79.51 Long term (current) use of inhaled steroids; Z79.4 Long term (current) use of insulin
CPT/HCPCS: 36415; 70496; 80053; 82306; 82390; 82607; 82728; 82746; 82948; 83540; 83550; 83735; 85025; 93005; 93880; 96374; A9270; C8929; G0378; G0379; J1815; J7512; Q9957; Q9967

== ENCOUNTER 2021-03-04 17:53 | Emergency (ER) | payer OTHER, SELFPAY ==
--- NOTE | ~2021-03-04 | CT_ITS ---
EXAMINATION: CT brain wo con EXAM DATE: 03/04/2021 18:39 INDICATION: Left-sided tingling, LT sided extremity paresthesia couple days on/off. TECHNIQUE: Spiral CT of the head was performed without contrast. Axial, coronal and sagittal images were reviewed. The dose-length product (DLP) for this examination was 681.00 mGy-cm. The exposure w as tailored according to patient size, and iterative reconstruction (ASIR) was used as additional dos e reduction technique. Comparison is made to prior examination from 09/26/2020. FINDINGS: Small old right frontal lobe infarction. Compared to prior study interval development of sm all hypodensity in the right thalamus, age indeterminate lacunar infarction. There is punctate old ri ght caudate head lacunar infarction. 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 Mild to modera te microangiopathy and cerebral atrophy. No brain mass, extra-axial collections, acute intracranial h emorrhage or obstructive hydrocephalus. Visualized sinuses and mastoid air cells are well aerated. Th ere is left choroidal fissure cyst. IMPRESSION: 1. Small right thalamic hypodensity, age indeterminate lacunar infarction. 2. Old small right frontal, right caudate infarctions. 3. Mild to moderate chronic age related changes. Reviewed, dictated and finalized at location A. Y READER
[2021-03-04 18:05] VITALS: BP 217/95; PULSE 73; RESP 16; TEMP 36.4; O2SAT 97
--- NOTE | 2021-03-04 18:10 | ED.NEUROSD ---
HPI - Neuro Symptoms/Deficit General Chief Complaint: Unspecified Stated Complaint: tingling on L side Mode of arrival: ambulatory Limitations: no limitations History of Present Illness HPI Narrative: patient states that he has had a brain fog for several months. He has been to the doctor and had a carotid Doppler and August of last year, also CTA of the brain vasculature, and an MRI of the brain. He states that he has had some strokes in the past. He has had symptoms for approximately 10 days he called his doctor last week in the doctor told to go the emergency room, he said he was not any pain so he did come. He called his doctor again today who told him to go to the emergency room because his symptoms have not resolved. He he has a daughter who tested positive for COVID on February 20. He is not really having any symptoms at this time but he does remember the exposure. He is fully vaccinated with a booster. He says he has been having tingling in his left face he points to his cheek, his left arm he says it seems to be in his hand. And his left leg. He says sometimes the left leg feels numb like his knee is going to buckle you but he has not really noticed any overall weakness. He does not remember which side he had strokes on in the past. Onset (ago): day(s) () Location: left face, left arm and left leg History of same: Yes Severity: moderate Quality: numb Relieving factors: none Exacerbating factors: none Context: sudden onset Associated symptoms: denies other symptoms Treatments Prior to Arrival: none Related Data Home Medications Medication Instructions Recorded Confirmed albuterol sulfate 90 mcg/actuation 2 inh INHALATION Q4H 03/06/20 09/27/20 aerosol inhaler cetirizine 10 mg tablet 10 mg PO DAILY 03/06/20 03/04/21 methotrexate sodium 2.5 mg tablet 2.5 mg PO WEEKLY 03/06/20 03/04/21 prednisone 5 mg tablet 5 mg PO DAILY 03/06/20 03/04/21 insulin glargine 100 unit/mL (3 40 unit SUBCUT QPM 03/20/20 03/04/21 mL) subcutaneous pen insulin lispro 200 unit/mL (3 mL) See Rx Instructions .ROUTE .COMPLEX 03/20/20 03/04/21 subcutaneous pen losartan 50 mg tablet 100 mg PO DAILY tablet 03/20/20 03/04/21 pantoprazole 40 mg tablet,delayed 40 mg PO BID 04/23/20 03/04/21 release carvedilol [Coreg] 6.25 mg PO BID 09/26/20 03/04/21 Vitamin D2 1.25 mg PO [id number] 03/04/21 03/04/21 calcium citrate 1,000 unit PO BID 03/04/21 03/04/21 felodipine 2.5 mg PO DAILY 03/04/21 03/04/21 ferrous gluconate 324 mg PO BID 03/04/21 03/04/21 folic acid 4 mg PO DAILY 03/04/21 03/04/21 Allergies Allergy/AdvReac Type Severity Reaction Status Date / Time No Known Allergies Allergy Mild Verified 03/04/21 18:18 Review of Systems Review of Systems: All systems reviewed & are unremarkable except as noted in HPI and below PMFSH Past Medical History Medical History (Updated 03/04/21 @ 19:19 by Rashel Patterson MD) Aortic stenosis, moderate Ruano's esophagus without dysplasia Heart murmur Hypertension Obesity Right shoulder pain Stroke Transient alteration of awareness Type 2 diabetes mellitus with diabetic polyneuropathy, with long-term current use of insulin Surgical History Surgical History (Updated 03/04/21 @ 18:33 by Rashel Patterson MD) H/O left wrist surgery H/O shoulder surgery History of sleeve gastrectomy Hx of knee surgery Previous back surgery Family History Family History Mother Diabetes mellitus, Onset Age: 68 Family history of cardiovascular disease Sibling Diabetes mellitus Family history of lung disease Father Family history of cardiovascular disease Family history of Parkinson's disease, Onset Age: 70 Other Cerebrovascular accident Hypertension Social History Social History Smoking status: Current some day smoker Tobacco type: cigarettes Second hand tobacco smoke exposure:
[2021-03-04 18:17] VITALS: PULSE 68
[2021-03-04 18:27] LABS: Basophils Absolute Auto 0.06 K/mm3 (0.00-0.10); Basophils Percent Auto 0.9 % (0.0-1.0); Eosinophils Absolute Auto 0.09 K/mm3 (0.02-0.50); Eosinophils Percent Auto 1.3 % (1.0-6.0); Hematocrit 32.5 % (40.0-54.0); Hemoglobin 10.3 g/dL (14.0-18.0); Immature Granulocyte Absolute 0.09 K/mm3 (0.00-0.00); Immature Granulocyte Percent A 1.3 % (0.0-0.0); Lymphocytes Percent Auto 11.6 % (18.0-42.0); Mean Corpuscular HGB Conc 31.7 g/dL (32.0-36.0); Mean Corpuscular Hemoglobin 25.9 pg (27.0-31.0); Mean Corpuscular Volume 81.7 fL (78.0-102.0); Mean Platelet Volume 10.2 fl (8.7-11.0); Monocytes Absolute Auto 0.27 K/mm3 (0.10-0.90); Monocytes Percent Auto 3.9 % (2.0-11.0); Neutrophils Absolute Auto 5.6 K/mm3 (1.7-7.2); Platelet Count Result 222 K/mm3 (150-420); Red Blood Count 3.98 M/mm3 (4.70-6.10); White Blood Count 6.9 K/mm3 (4.8-10.8)
[2021-03-04 18:40] LABS: Prothrombin Time 10.6 Seconds (9.50-12.10)
[2021-03-04 18:42] LABS: Alanine Aminotransferase 25 U/L (16-63); Albumin Level 3.2 g/dL (3.4-5.0); Alkaline Phosphatase 109 U/L (46-116); Anion Gap 12 mmol/L (8-16); Aspartate Amino Transferase 13 U/L (15-37); Bilirubin,Total 0.3 mg/dL (0.00-1.00); Blood Urea Nitrogen 23 mg/dL (7-18); Calcium 8.7 mg/dL (8.5-10.1); Carbon Dioxide 25 mmol/L (21-32); Chloride 100 mmol/L (98-108); Estimated CRCL calculation 70 ml/min; Estimated Glomerular Filt Rate 56; Glucose 315 mg/dL (70-99); Osmolality Calculated 299 mOsm/kg (285-295); Potassium 3.9 mmol/L (3.5-5.1); Sodium 137 mmol/L (136-145); Total Protein 6.7 g/dL (6.4-8.2)
[2021-03-04 18:44] VITALS: BP 181/72; PULSE 60; RESP 14; O2SAT 97
[2021-03-04 18:48] LABS: SARS-CoV-2 Ag Negative (Negative)
[2021-03-04] MEDS: INSULIN HUMAN REGULAR (*BKC) 100 UNITS/ML 8 UNITS SUB-Q (18:58)
[2021-03-04] MEDS: cloNIDine HCL 0.1 MG TABLET 0.2 MG PO (18:58)
[2021-03-04 19:25] VITALS: BP 190/74; PULSE 56; RESP 16; TEMP 36.4; O2SAT 97
== END 2021-03-04 19:27 | disposition home or self-care (01) ==
PROVIDERS: Emergency Provider Emergency Medicine; PCP Internal Medicine
DX: G45.9 Transient cerebral ischemic attack, unspecified (principal); E11.9 Type 2 diabetes mellitus without complications; Z79.4 Long term (current) use of insulin; I10 Essential (primary) hypertension
CPT/HCPCS: 36415; 70450; 80053; 85025; 85610; 87426; 99282; 99284; A9270; C9803; J1815

== ENCOUNTER 2021-05-10 07:34 | Outpatient (CLI) | payer OTHER, SELFPAY ==
[2021-05-10 08:27] LABS: Total Protein Urine Random 139.7 mg/dL (0.0-11.9)
[2021-05-10 08:29] LABS: Total Protein Urine 24 Hr 4191 mg/24hr (0-149); Total Volume 24 Hour Urine 3000 ml
== END 2021-05-10 07:35 | disposition home or self-care (01) ==
PROVIDERS: PCP Internal Medicine; Visit Provider Internal Medicine
DX: R80.9 Proteinuria, unspecified (principal)
CPT/HCPCS: 81050; 84156

== ENCOUNTER 2021-05-20 08:15 | Outpatient (CLI) | payer OTHER, SELFPAY ==
--- NOTE | ~2021-05-20 | MR_ITS ---
EXAMINATION: MR brain/brain stem wo con DATE: 05/20/2021 09:25 INDICATION: Headaches for 3 months. TECHNIQUE: Magnetic resonance imaging (MRI) of the brain and brainstem was performed without intraven ous contrast. Sequences included sagittal and axial T1-weighted SE, axial diffusion-weighted FS SE, a xial T2*-weighted GRE, axial T2-weighted FLAIR Propeller, and axial T2-weighted Propeller. Apparent d iffusion coefficient (ADC) maps were created. COMPARISON: CT dated 03/04/2021. FINDINGS: Small chronic right frontal lobe infarction. Small chronic right caudate and thalamic infar ctions. Chronic left lacunar infarction. There are scattered mild periventricular and subcortical whi te matter changes, most likely related to small vessel ischemic disease (microangiopathy). No acute i ntracranial hemorrhage or infarction. Midline sagittal images demonstrate a normal corpus callosum an d craniovertebral junction. Paranasal sinuses are unremarkable. Orbits are symmetric without disconju gate gaze. Structures of the posterior fossa including 7/8th cranial nerve complexes are normal. IMPRESSION: 1. No acute intracranial abnormality. 2: Chronic right frontal lobe, bilateral lacunar and right thalamic infarctions. 3: Chronic age-related findings. Reviewed, dictated and finalized at location A. IMPRESSION: 1. No acute intracranial abnormality. 2: Chronic right frontal lobe, bilateral lacunar and right thalamic infarction s. 3: Chronic age-related findings.
== END 2021-05-20 08:16 | disposition home or self-care (01) ==
LOC: CHSIMG 08:17
PROVIDERS: PCP Internal Medicine; Visit Provider Internal Medicine
DX: R20.0 Anesthesia of skin (principal); I67.9 Cerebrovascular disease, unspecified
CPT/HCPCS: 70551

== ENCOUNTER 2021-07-09 10:20 | Outpatient (CLI) | payer OTHER, SELFPAY ==
--- NOTE | ~2021-07-09 | US_ITS ---
US retroperitoneal comp 07/09/2021 10:38 Procedure: Realtime transabdominal ultrasound of the kidneys and bladder. Indication: Proteinuria Comparison: No prior studies for comparison. Findings: Renal echotexture is normal bilaterally without hydronephrosis, contour deforming mass or r enal calculus. The right kidney measures 12.1 cm and left kidney measures 13 cm. Bladder within norm al limits. Impression: 1: Unremarkable renal ultrasound. No stones, masses or hydronephrosis. Reviewed, dictated and finalized at location A. Impression: 1: Unremarkable renal ultrasound. No stones, masses or hydronephrosis.
== END 2021-07-09 10:21 | disposition home or self-care (01) ==
LOC: CHSIMG 10:22
PROVIDERS: PCP Internal Medicine; Visit Provider Internal Medicine Nephrology
DX: R80.8 Other proteinuria (principal)
CPT/HCPCS: 76770